=== PATIENT | female | born 1945 | race Caucasian/White ===

== ENCOUNTER 2020-10-08 13:54 | Emergency (ER) | payer MEDICARE, MEDICAID ==
[2020-10-08 15:08] LABS: ANION GAP 19.2 mmol/L (5-15); CHLORIDE,CL 104 mmol/L (98-107); SODIUM,NA 137 mmol/L (136-145)
--- NOTE | 2020-10-08 16:42 | EDM.PDOC ---
ED HPI GENERAL MEDICAL PROBLEM - General Chief Complaint: General Stated Complaint: UTI,HI Time Seen by Provider: 10/08/20 14:00 Source of Information: Reports: Patient ([id number]), Old Records, Other ([facility] advocate) History Limitations: Reports: Altered Mental Status - History of Present Illness INITIAL COMMENTS - FREE TEXT/NARRATIVE: 75-year-old female was picked up by ride line today as she was walking in town. Patient stated that she was heading towards the hospital to be seen and evaluated for possible urinary tract infection and he was kind enough to bring her in. She states that she just moved from [place] to [place] is living in the apartments. She has been here for 1 week. She states that she has no family. And that she has an advocate from the [facility] who helped her relocate here. She stated that she wanted to live in a smaller size down. She is somewhat disabled and unkempt and has a delusional thought process and paranoia thinking. She was supposed to set up a primary care provider but has not had a chance to do this yet. She has seen previous [facility] providers in [place]. I was able to get a hold of her advocate who stated that her paranoia and delusional thought processes are not unusual for her and she has not been a harm to herself or others. She currently denies any thoughts of self-harm or suicide. Her paranoia consist of feeling that the "[place] mafia is after her." Her previous visits that we are able to get records show complaints of similar episodes of urinary tract infections and paranoia and delusional thinking. She does not h ave any significant medications listed for psychiatric treatment. Onset: Unknown/Unsure Duration: Recurring Location: Reports: Generalized Quality: Reports: Burning Severity: Mild Improves with: Reports: None Worsens with: Reports: None Associated Symptoms: Reports: Other (parnoid, delusional) Treatments [employer]: Reports: Acetaminophen Other Treatments [employer] SERVICER: States she has been using a lot of tylenol at home. 0 Pain Score (Numeric/FACES): 0 - Related Data Allergies Allergy/AdvReac Type Severity Reaction Status Date / Time latex Allergy Hives Verified 10/08/20 16:16 Penicillins Allergy Hives Verified 10/08/20 16:16 Sulfa (Sulfonamide Allergy Hives Verified 03/12/21 16:16 Antibiotics) Home Meds: Home Meds Albuterol Sulfate [Albuterol Sulfate HFA] 2 inhalation PO 10/08/20 [History] Ciprofloxacin HCl [Cipro] 500 mg PO BID #10 tablet 10/08/20 [Rx] lisinopriL [Lisinopril] 5 mg PO DAILY PRN 10/08/20 [History] Past Medical History HEENT History: Reports: Cataract Other HEENT History: cataract times 2 Cardiovascular History: Reports: Heart Valve Replacement, High Cholesterol, Hypertension Other Cardiovascular History: Dr. Yusuf at [facility] Genitourinary History: Reports: UTI, Recurrent Musculoskeletal History: Reports: Other (See Below) Other Musculoskeletal History: bolt in right lower leg Psychiatric History: Reports: Antisocial Behaviors, Anxiety, Hallucinations, Psych Hospitalization(s) Other Psychiatric History: History of delusion disorder. ironworker apprentice states patient is no harm to self or others. Able to care for self. Hematologic History: Reports: Blood Transfusion(s) Oncologic (Cancer) History: Reports: Basal Cell Carcinoma Other Oncologic History: States nose skin cancer Dermatologic History: Reports: Other (See Below) Other Dermatologic History: Neurodermatitis - Infectious Disease History Infectious Disease History: Reports: None - Past Surgical History Head Surgeries/Procedures: Reports: None Cardiovascular Surgical History: Reports: Valve Replacement Oncologic Surgical History: Reports: Other (See Below) Other Oncologic Surgeries/Procedures: skin biopsy to nose Dermatological Surgical History: Reports: None Social & Family History - Family History Family Medical History: No Pertinent Family History HEENT: Reports: None Cardiac: Reports: None Respiratory: Reports: None GI: Reports: None : Reports: None OBGYN: Reports: None Musculoskeletal: Reports: None Neurological: Reports: None Psychiatric: Reports: None Endocrine/Metabolic: Reports: None Hematologic: Reports: None Immunologic: Reports: None Dermatologic: Reports: None Oncologic: Reports: None - Tobacco Use Tobacco Use Status *Q: Never Tobacco User Second Hand Smoke Exposure: No - Caffeine Use Caffeine Use: Reports: Coffee ED ROS GENERAL - Review of Systems Review Of Systems: See Below Constitutional: Reports: No Symptoms HEENT: Reports: No Symptoms Respiratory: Reports: No Symptoms Cardiovascular: Reports: No Symptoms Endocrine: Reports: No Symptoms GI/Abdominal: Reports: No Symptoms : Reports: Dysuria Musculoskeletal: Reports: No Symptoms Skin: Reports: No Symptoms Neurological: Reports: No Symptoms Psychiatric: Reports: Other (Delusional, paranoid). Denies: Hallucinations, Homicidal Ideation, Suicidal Ideation Immunologic: Reports: No Symptoms ED EXAM, GENERAL - Physical Exam Exam: See Below Exam Limited By: Altered Mental Status (Delusional content and tangential process) General Appearance: Alert, WD/WN, No Apparent Distress, Other (General appearance is disheveled.) Eye Exam: Bilateral Eye: EOMI Ears: Hearing Grossly Normal Nose: Normal Inspection Throat/Mouth: Normal Lips, Normal Oropharynx, Normal Voice, No Airway Compromise Head: Atraumatic Neck: Normal Inspection Respiratory/Chest: No Respiratory Distress, Lungs Clear Cardiovascular: Regular Rate, Rhythm, No Murmur GI/Abdominal: Soft, Non-Tender Back Exam: Normal Inspection Extremities: Normal Inspection Neurological: Alert, Oriented, No Motor/Sensory Deficits Psychiatric: Flat Affect, Other (Thought process is tangential, thought content is delusional; judgment and insight are both poor) Skin Exam: Warm, Dry, No Rash, Wound/Incision (Both excoriations overlying her extremities both upper and lower) Lymphatic: No Adenopathy Course - Vital Signs Last Recorded V/S: Last Vital Signs Temp 97 F 10/08/20 16:08 Pulse 60 10/08/20 16:08 Resp 16 10/08/20 16:08 BP 111/72 10/08/20 16:08 Pulse Ox 96 10/08/20 16:08 - Orders/Labs/Meds Orders: Active Orders 24 hr Category Date Time Status CULTURE URINE [RM] Stat Lab 10/08/20 14:20 Received Labs: Laboratory Tests 10/08/20 10/08/20 10/08/20 Range/Units 14:40 14:40 15:45 WBC 10.30 H (5.00-10.00) 10^3/uL RBC 3.13 L (3.80-5.50) 10^6/uL Hgb 10.0 L (12.0-16.0) g/dL Hct 31.2 L (37.0-47.0) % MCV 99.7 H (82.0-92.0) fL MCH 31.9 H (27.0-31.0) pg MCHC 32.1 (32.0-36.0) g/dL RDW 14.1 (11.5-14.5) % Plt Count 353 (150-400) 10^3/uL MPV 9.4 (7.4-10.4) fL Immature Gran % (Auto) 0.1 (0.0-5.0) % Neut % (Auto) 65.1 (50.0-70.0) % Lymph % (Auto) 24.5 (20.0-40.0) % [place] % (Auto) 7.4 (2.0-8.0) % Eos % (Auto) 2.4 (1.0-3.0) % Baso % (Auto) 0.5 (0.0-1.0) % Neut # (Auto) 6.71 (2.50-7.00) 10^3/uL Lymph # (Auto) 2.52 (1.00-4.00) 10^3/uL [place] # (Auto) 0.76 (0.10-0.80) 10^3/uL Eos # (Auto) 0.25 (0.10-0.30) 10^3/uL Baso # (Auto) 0.05 (0.00-0.10) 10^3/uL Immature Gran # (Auto) 0.01 (0.00-0.50) 10^3/uL Sodium 137 (136-145) mmol/L Potassium 5.1 (3.5-5.1) mmol/L Chloride 104 (98-107) mmol/L Carbon Dioxide 18.9 L (21.0-32.0) mmol/L Anion Gap 19.2 H (5-15) mmol/L BUN 40 H (7-18) mg/dL Creatinine 1.25 H (0.51-1.17) mg/dL Est Cr Clr Drug Dosing TNP Estimated GFR (MDRD) 42 mL/min Glucose 72 (70-140) mg/dL Calcium 8.9 (8.7-10.3) mg/dL Specimen Type Urinvoid Urine Color Yellow (YELLOW) Urine Appearance Turbid H (CLEAR) Urine pH 5.5 (5.0-9.0) Ur Specific [place] 1.015 (1.005-1.030) Urine Protein Trace H (NEGATIVE) mg/dL Urine Glucose (UA) Negative (NEGATIVE) mg/dL Urine Ketones Negative (NEGATIVE) mg/dL Urine Occult Blood Small H (NEGATIVE) Urine Nitrite Negative (NEGATIVE) Urine Bilirubin Negative (NEGATIVE) Urine Urobilinogen 0.2 (0.2-1.0) E.U./dL Ur Leukocyte Esterase Small H (NEGATIVE) Urine RBC 5-10 H (0-5) /HPF Urine WBC Packed (0-5) /HPF Ur Epithelial Cells Few /LPF Urine Bacteria Moderate H (NONE TO FEW) /HPF Departure - Departure Time of Disposition: 16:56 Disposition: Home, Self-Care 01 Condition: Fair Clinical Impression: UTI (urinary tract infection), uncomplicated, Delusional disorder, erotomanic type, with bizarre content, multiple episodes, 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 Cipro 500 mg twice daily for 5 days. 2. Patient needs to establish primary care in [place]. She was seen previously by [facility] in [place]. We will refer her to the [facility] in [facility] to develop primary care. 3. Jared Basilio, Social Service will be in contact with the patient as well as advocate from [facility]. Sepsis Event Note (ED) - Evaluation Sepsis Screening Result: No Definite Risk - Focused Exam Vital Signs: Vital Signs Temp Pulse Resp BP Pulse Ox 10/08/20 16:08 97 F 60 16 111/72 96 10/08/20 14:41 97.6 F 74 16 111/64 95 - My Orders Last 24 Hours: My Active Orders 10/08/20 14:20 CULTURE URINE [RM] Stat - Assessment/Plan Last 24 Hours: My Active Orders 10/08/20 14:20 CULTURE URINE [RM] Stat Assessment:: Urinary tract infection Delusional content with paranoia, recurrent multiple episodes, with no suicidal or self-harm thinking. Plan: 1. Patient will be started on Cipro 500 mg twice daily for 5 days for urinary tract infection. Cultures of urine were ordered.. 2. Patient has recently relocated to [place], she needs to establish primary care and has seen previous [facility] providers in [place]. We will make a referral and set up appointment with her here in [place]. 3. Patient has delusional and paranoid thought process without self-harm or suicidal thinking. We have been able to get a hold of her advocate from [place] at the [facility]. We also will contact social media sr strategy manager, Jared Basilio for follow-up for the patient's living situation and cares.
== END 2020-10-08 17:00 | disposition home or self-care (01) ==
LOC: KA.ED 13:54
DX: N39.0 Urinary tract infection, site not specified (principal); F22 Delusional disorders; I10 Essential (primary) hypertension; Z79.899 Other long term (current) drug therapy; Z91.040 Latex allergy status; Z88.0 Allergy status to penicillin; Z88.2 Allergy status to sulfonamides
CPT/HCPCS: 36415; 80048; 81001; 85025; 87077; 87086; 87088; 87186; 99284

== ENCOUNTER 2020-11-17 15:50 | Observation (INO) | payer MEDICARE, MEDICAID ==
[2020-11-17] MEDS ORDERED: ALBUTEROL INH PRN (16:35)
[2020-11-17] MEDS ORDERED: Acetaminophen 325 MG Tab PO PRN (16:35)
[2020-11-17] MEDS ORDERED: Sodium Chloride 0.9% 10 ML Syringe FLUSH PRN (17:00)
[2020-11-17] MEDS: Sodium Chloride 0.9% 1,000 ML IV SCH (17:23)
[2020-11-18] MEDS: BUDESONIDE INH SCH ×3 (03:00→09:00)
[2020-11-18] MEDS: FORMOTEROL INH SCH ×3 (03:00→09:00)
[2020-11-18] MEDS: Sodium Chloride 0.9% 1,000 ML IV SCH (03:50)
[2020-11-18] MEDS ORDERED: ALBUTEROL INH PRN (07:59)
--- NOTE | 2020-11-18 10:45 | PCM.DCSUM1 ---
Discharge Summary - Hospital Course Diagnosis: Stroke: No - Discharge Data Discharge Date: 11/18/20 Discharge Disposition: Home, Self-Care 01 Condition: Good - Referral to Home Health Primary Care Physician: Rosi Yusuf NP - Patient Summary/Data Consults: Consultations 11/17/20 19:25 Consult to Case Management/Bottle Washer Machine [CONS] Routine - Patient Instructions Activity: As Tolerated Showering/Bathing: May Shower Notify Provider of: Fever, Nausea and/or Vomiting - Discharge Plan *PRESCRIPTION DRUG MONITORING PROGRAM REVIEWED*: Not Applicable *COPY OF PRESCRIPTION DRUG MONITORING REPORT IN PATIENT JEANETH: Not Applicable Prescriptions/Med Rec: Ertapenem Sodium [Ertapenem] 1 gm IM DAILY 7 Days #7 vial amLODIPine [Norvasc] 2.5 mg PO DAILY #30 tablet Home Medications: Home Meds lisinopriL [Lisinopril] 10 mg PO DAILY 10/08/20 [History] Acetaminophen 650 mg PO Q6H PRN 11/17/20 [History] Albuterol [Proventil HFA] 2 puff INH Q4H PRN 11/17/20 [History] Budesonide/Formoterol [Symbicort 160-4.5 MCG] 2 puff INH BID 11/17/20 [History] hydroCHLOROthiazide [Hydrochlorothiazide] 12.5 mg PO DAILY 11/17/20 [History] Ertapenem Sodium [Ertapenem] 1 gm IM DAILY 7 Days #7 vial 11/18/20 [Rx] amLODIPine [Norvasc] 2.5 mg PO DAILY #30 tablet 11/18/20 [Rx] - Discharge Summary/Plan Comment DC Time >30 min.: Yes Discharge Summary/Plan Comment: Medication changes/adjustments upon Discharge --HOLD ACEI due to hyperkalemia and mild dehydration --Holding HCTZ since mildly dehydrated can resume upon follow-up --Added amlodipine 2.5 mg p.o. daily while holding GENOVEVA inhibitor, added due to need for better control --Ertapenem, 1 g IM daily x7 days, may be able to switch to p.o. upon culture sensitivities - Patient Data Vitals - Most Recent: Last Vital Signs Temp 97.5 F 11/18/20 06:23 Pulse 80 11/18/20 06:23 Resp 20 11/18/20 06:23 BP 152/62 H 11/18/20 06:23 Pulse Ox 95 11/18/20 06:23 Weight - Most Recent: 158 lb I&O - Last 24 hours: Intake & Output 11/17/20 11/18/20 11/18/20 22:59 06:59 14:59 Intake Total 650 1884 Balance 650 7274 Lab Results - Last 24 hrs: Laboratory Results - last 24 hr 11/17/20 11/18/20 11/18/20 Range/Units 16:00 07:40 07:40 WBC 5.96 (5.00-10.00) 10^3/uL RBC 2.72 L (3.80-5.50) 10^6/uL Hgb 8.8 L (12.0-16.0) g/dL Hct 28.1 L (37.0-47.0) % MCV 103.3 H D (82.0-92.0) fL MCH 32.4 H (27.0-31.0) pg MCHC 31.3 L (32.0-36.0) g/dL RDW 14.2 (11.5-14.5) % Plt Count 388 (150-400) 10^3/uL MPV 9.0 (7.4-10.4) fL Immature Gran % (Auto) 0.2 (0.0-5.0) % Neut % (Auto) 50.8 (50.0-70.0) % Lymph % (Auto) 30.7 (20.0-40.0) % [place] % (Auto) 12.6 H (2.0-8.0) % Eos % (Auto) 4.9 H (1.0-3.0) % Baso % (Auto) 0.8 (0.0-1.0) % Neut # (Auto) 3.03 (2.50-7.00) 10^3/uL Lymph # (Auto) 1.83 (1.00-4.00) 10^3/uL [place] # (Auto) 0.75 (0.10-0.80) 10^3/uL Eos # (Auto) 0.29 (0.10-0.30) 10^3/uL Baso # (Auto) 0.05 (0.00-0.10) 10^3/uL Immature Gran # (Auto) 0.01 (0.00-0.50) 10^3/uL Sodium 141 (136-145) mmol/L Potassium 4.7 (3.5-5.1) mmol/L Chloride 109 H (98-107) mmol/L Carbon Dioxide 18.7 L (21.0-32.0) mmol/L Anion Gap 18.0 H (5-15) mmol/L BUN 34 H (7-18) mg/dL Creatinine 1.15 (0.51-1.17) mg/dL Est Cr Clr Drug Dosing 35.50 mL/min Estimated GFR (MDRD) 46 mL/min Glucose 85 (70-140) mg/dL Calcium 8.4 L (8.7-10.3) mg/dL SARS CoV-2 RNA Rapid MICA Negative (NEGATIVE) Med Orders - Current: Current Medications Acetaminophen (Acetaminophen 325 Mg Tab) 650 mg PO Q6H PRN PRN Reason: Pain Albuterol (Albuterol 8 Gm InhalerPt Own) 2 gm INH Q4H PRN PRN Reason: Shortness of Breath Last Admin: 11/18/20 09:22 Dose: 2 puff Documented by: Sodium Chloride (Normal Saline) 1,000 mls @ 100 mls/hr IV ASDIRECTED [facility] Last Admin: 11/18/20 03:50 Dose: 100 mls/hr Documented by: Budesonide/Formoterol 160/4. 5mcgPt Own 2 puff INH BID [facility] Last Admin: 11/18/20 03:00 Dose: 2 puff Documented by: Sodium Chloride (Sodium Chloride 0.9% 10 Ml Syringe) 10 ml FLUSH Q8HR PRN PRN Reason: keep vein open Discontinued Medications Albuterol (Albuterol 8 Gm InhalerPt Own) 2 gm INH Q4H PRN PRN Reason: Shortness of Breath Last Admin: 11/18/20 03:00 Dose: 2 puff Documented by: Ertapenem 0.5 gm/ Sodium (Chloride) 50 mls @ 100 mls/hr IV ONETIME ONE Stop: 11/17/20 16:46 Last Admin: 11/17/20 17:22 Dose: 100 mls/hr Documented by:
== END 2020-11-18 13:30 | disposition home or self-care (01) ==
LOC: KA.MS 15:50
PROVIDERS: ADMIT Nurse Practitioner Family; ATTEND Family Medicine
DX: N30.01 Acute cystitis with hematuria (principal); E86.0 Dehydration; B96.20 Unspecified Escherichia coli [E. coli] as the cause of diseases classified elsewhere; E87.6 Hypokalemia; I12.9 Hypertensive chronic kidney disease with stage 1 through stage 4 chronic kidney disease, or unspecified chronic kidney disease; N18.4 Chronic kidney disease, stage 4 (severe); J44.9 Chronic obstructive pulmonary disease, unspecified; R60.9 Edema, unspecified; F41.9 Anxiety disorder, unspecified; L97.821 Non-pressure chronic ulcer of other part of left lower leg limited to breakdown of skin; Z20.822 Contact with and (suspected) exposure to COVID-19; Z79.899 Other long term (current) drug therapy; Z88.0 Allergy status to penicillin; Z91.040 Latex allergy status; Z85.3 Personal history of malignant neoplasm of breast
CPT/HCPCS: 36415; 80048; 85025; 96365; 96376; A9270-GY; G0378; J1335; J7030; U0002

== ENCOUNTER 2020-12-10 13:23 | Emergency (ER) | payer MEDICARE, MEDICAID ==
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
[2020-12-10] MEDS ORDERED: Hydrochlorothiazide 25 MG Tab PO ONE (14:50)
[2020-12-10] MEDS ORDERED: Mupirocin Oint 22 GM Tube TOP ONE (14:59)
== END 2020-12-10 15:25 | disposition home or self-care (01) ==
LOC: KA.ED 13:23
DX: F22 Delusional disorders (principal); R60.0 Localized edema; L28.0 Lichen simplex chronicus; Z88.0 Allergy status to penicillin; Z91.040 Latex allergy status; Z88.2 Allergy status to sulfonamides; Z79.899 Other long term (current) drug therapy
CPT/HCPCS: 99283; 99284; A9270

== ENCOUNTER 2020-12-21 12:09 | Emergency (ER) | payer MEDICARE, MEDICAID ==
--- NOTE | 2020-12-21 13:22 | EDM.PDOC ---
ED HPI GENERAL MEDICAL PROBLEM - General Chief Complaint: General Stated Complaint: UTI,SKIN ISSUES Time Seen by Provider: 12/21/20 13:07 Source of Information: Reports: Patient History Limitations: Reports: No Limitations - History of Present Illness INITIAL COMMENTS - FREE TEXT/NARRATIVE: 75 YO WF PRESENTS TO ER WITH COMPLAINTS OF DYSURIA WITH FREQUENCY AND URGENCY X 1 DAY. PT REPORTS SHE HAS HAD UTI'S IN THE PAST AND THIS IS SIMILAR. PT DENIES FEVER/CHILLS, NO BACK PAIN OR NAUSEA/VOMITING. PT ALSO COMPLAINING OF CHRONIC SKIN RASH TO LOWER EXTREMITIES THAT IMPROVES WITH STEROIDAL OINTMENT. PT WITH HISTORY OF NEURODERMATITIS AND STATES SHE RESPONSES WELL TO STEROIDAL TREATMENT. Onset: Today Duration: Chronic Location: Reports: Lower Extremity, Left, Lower Extremity, Right Quality: Reports: Other (ITCHING) Improves with: Reports: None Worsens with: Reports: None Associated Symptoms: Reports: No Other Symptoms, Malaise. Denies: Confusion, Fever/Chills, Nausea/Vomiting, Weakness - Related Data Allergies Allergy/AdvReac Type Severity Reaction Status Date / Time latex Allergy Hives Verified 12/21/20 12:23 Penicillins Allergy Hives Verified 12/21/20 12:23 Sulfa (Sulfonamide Allergy Hives Verified 12/21/20 12:23 Antibiotics) Home Meds: Home Meds lisinopriL [Lisinopril] 10 mg PO DAILY 10/08/20 [History] Acetaminophen 650 mg PO Q6H PRN 11/17/20 [History] Albuterol [Ventolin HFA] 2 gm INH Q4H PRN #1 inhaler 11/18/20 [Rx] Hydrocortisone [Hydrocortisone 2.5% Oint] 60 gm .XX TID #60 tube 12/21/20 [Rx] Phenazopyridine HCl [Pyridium] 200 mg PO TID PRN #6 tablet 12/21/20 [Rx] cephALEXin [Keflex] 500 mg PO Q8H #21 cap 12/21/20 [Rx] Past Medical History HEENT History: Reports: Cataract, Impaired Vision Other HEENT History: cataract times 2 Cardiovascular History: Reports: Heart Murmur, Heart Valve Replacement, Hypertension Other Cardiovascular History: Dr. Yusuf at [facility] Respiratory History: Reports: Asthma Gastrointestinal History: Reports: Other (See Below) Other Gastrointestinal History: umbilical hernia Genitourinary History: Reports: UTI, Recurrent Musculoskeletal History: Reports: Other (See Below) Other Musculoskeletal History: bolt in right lower leg Neurological History: Reports: None Psychiatric History: Reports: Antisocial Behaviors, Anxiety, Hallucinations, Psych Hospitalization(s) Other Psychiatric History: History of delusion disorder. fiber glass worker states patient is no harm to self or others. Able to care for self. Endocrine/Metabolic History: Reports: None Hematologic History: Reports: Blood Transfusion(s) Immunologic History: Reports: None Oncologic (Cancer) History: Reports: Basal Cell Carcinoma, Breast Other Oncologic History: States nose skin cancer Dermatologic History: Reports: Other (See Below) Other Dermatologic History: Neurodermatitis - Infectious Disease History Infectious Disease History: Reports: Chicken Pox, Extended Spectrum Beta- Lactamase (ESBL) - Past Surgical History Head Surgeries/Procedures: Reports: None Cardiovascular Surgical History: Reports: Valve Replacement GI Surgical History: Reports: Cholecystectomy, Hernia, Inguinal Endocrine Surgical History: Reports: None Neurological Surgical History: Reports: None Musculoskeletal Surgical History: Reports: None Oncologic Surgical History: Reports: Lumpectomy, Other (See Below) Other Oncologic Surgeries/Procedures: skin biopsy to nose Dermatological Surgical History: Reports: None Social & Family History - Family History Family Medical History: No Pertinent Family History HEENT: Reports: None Cardiac: Reports: None Respiratory: Reports: None GI: Reports: None : Reports: None OBGYN: Reports: None Musculoskeletal: Reports: None Neurological: Reports: None Psychiatric: Reports: None Endocrine/Metabolic: Reports: None Hematologic: Reports: None Immunologic: Reports: None Dermatologic: Reports: None Oncologic: Reports: None - Tobacco Use Tobacco Use Status *Q: Never Tobacco User - Caffeine Use Caffeine Use: Reports: Coffee, Soda, Tea - Recreational Drug Use Recreational Drug Use: No ED ROS GENERAL - Review of Systems Review Of Systems: See Below Constitutional: Reports: No Symptoms HEENT: Reports: No Symptoms Respiratory: Reports: No Symptoms Cardiovascular: Reports: No Symptoms Endocrine: Reports: No Symptoms GI/Abdominal: Reports: No Symptoms : Reports: Dysuria, Frequency, Urgency Musculoskeletal: Reports: No Symptoms Skin: Reports: Rash Neurological: Reports: No Symptoms Psychiatric: Reports: No Symptoms Hematologic/Lymphatic: Reports: No Symptoms Immunologic: Reports: No Symptoms ED EXAM, GENERAL - Physical Exam Exam: See Below Exam Limited By: No Limitations General Appearance: Alert, WD/WN, No Apparent Distress Respiratory/Chest: No Respiratory Distress, Lungs Clear, Normal Breath Sounds, No Accessory Muscle Use, Chest Non-Tender Cardiovascular: Normal Peripheral Pulses, Regular Rate, Rhythm, No Edema, No Gallop, No JVD, No Murmur, No Rub GI/Abdominal: Normal Bowel Sounds, Soft, Non-Tender, No Organomegaly, No Distention, No Abnormal Bruit, No Mass Back Exam: Normal Inspection, Full Range of Motion, NT Extremities: Normal Inspection, Normal Range of Motion, Non-Tender, Normal Capillary Refill, No Pedal Edema Neurological: Alert, Oriented, CN II-XII Intact, Normal Cognition, Normal Gait, Normal Reflexes, No Motor/Sensory Deficits Skin Exam: Warm, Dry, Rash (MACULARPAPULAR RASH TO LOWER EXTREMITIES). No: Increased Warmth Lymphatic: No Adenopathy Course - Vital Signs Last Recorded V/S: Last Vital Signs Temp 98.6 F 12/21/20 12:19 Pulse 94 12/21/20 12:19 Resp 18 12/21/20 12:19 BP 103/81 12/21/20 12:19 Pulse Ox 94 L 12/21/20 12:19 - Orders/Labs/Meds Orders: Active Orders 24 hr Category Date Time Status CULTURE URINE [RM] Stat Lab 12/21/20 12:31 Received Labs: Laboratory Tests 12/21/20 Range/Units 12:31 Specimen Type Urinvoid Urine Color Yellow (YELLOW) Urine Appearance Cloudy H (CLEAR) Urine pH 5.0 (5.0-9.0) Ur Specific [place] 1.025 (1.005-1.030) Urine Protein 100 H (NEGATIVE) mg/dL Urine Glucose (UA) Negative (NEGATIVE) mg/dL Urine Ketones Negative (NEGATIVE) mg/dL Urine Occult Blood Moderate H (NEGATIVE) Urine Nitrite Positive H (NEGATIVE) Urine Bilirubin Negative (NEGATIVE) Urine Urobilinogen 0.2 (0.2-1.0) E.U./dL Ur Leukocyte Esterase Small H (NEGATIVE) Urine RBC 10-20 H (0-5) /HPF Urine WBC 75-100 H (0-5) /HPF Ur Epithelial Cells Occasional /LPF Urine Bacteria Occasional (NONE TO FEW) /HPF Meds: Medications Discontinued Medications Generic Name Dose Route Start Last Admin Trade Name Freq PRN Reason Stop Dose Admin Ceftriaxone Sodium 1 gm 12/21/20 13:22 Ceftriaxone 1 Gm Vial IM 12/21/20 13:23 ONETIME ONE Departure - Departure Time of Disposition: 13:43 Disposition: Home, Self-Care 01 Condition: Good Clinical Impression: UTI, Urinary tract infectious disease, Dermatitis - Discharge Information Prescriptions: Hydrocortisone [Hydrocortisone 2.5% Oint] 60 gm .XX TID #60 tube cephALEXin [Keflex] 500 mg PO Q8H #21 cap Phenazopyridine HCl [Pyridium] 200 mg PO TID PRN #6 tablet PRN Reason: Pain Instructions: Urinary Tract Infection, Adult, [id number], Contact Dermatitis Referrals: Ingrid Troncoso MD [Primary Care Provider] - Forms: ED Department Discharge Additional Instructions: 1. DISCHARGE HOME 2. KEFLEX 500MG 3X/DAY X 7 DAYS FOR UTI 3. PYRIDIUM 200MG TID X 3 DAYS NEEDED FOR PAIN 4. HYDROCORTISONE 2.5% 60G APPLY TO AFFECTED AREAS 3X/DAY X MINIMUM OF 2 WEEKS 5. FOLLOW UP IN CLINIC IN AM SCHEDULED 6. RETURN TO ER FOR WORSENING SYMPTOMS Sepsis Event Note (ED) - Evaluation Sepsis Screening Result: No Definite Risk - Focused Exam Vital Signs: Vital Signs Temp Pulse Resp BP Pulse Ox 12/21/20 12:19 98.6 F 94 18 103/81 94 L - My Orders Last 24 Hours: My Active Orders 12/21/20 12:31 CULTURE URINE [RM] Stat - Assessment/Plan Last 24 Hours: My Active Orders 12/21/20 12:31 CULTURE URINE [RM] Stat Assessment:: 1. URINARY TRACT INFECTION 2. DERMATITIS Plan: 1. DISCHARGE HOME 2. KEFLEX 500MG 3X/DAY X 7 DAYS FOR UTI 3. PYRIDIUM 200MG TID X 3 DAYS NEEDED FOR PAIN 4. HYDROCORTISONE 2.5% 60G APPLY TO AFFECTED AREAS 3X/DAY X MINIMUM OF 2 WEEKS 5. FOLLOW UP IN CLINIC IN AM SCHEDULED 6. RETURN TO ER FOR WORSENING SYMPTOMS
[2020-12-21] MEDS: cefTRIAXone 1 GM Vial IM ONE (13:38)
== END 2020-12-21 14:00 | disposition home or self-care (01) ==
LOC: KA.ED 12:09
DX: N39.0 Urinary tract infection, site not specified (principal); L30.9 Dermatitis, unspecified; I10 Essential (primary) hypertension; J45.909 Unspecified asthma, uncomplicated; Z79.899 Other long term (current) drug therapy; Z91.040 Latex allergy status; Z88.0 Allergy status to penicillin; Z88.2 Allergy status to sulfonamides
CPT/HCPCS: 81001; 87086; 87088; 87186; 96372; 99283; 99284; J0696

== ENCOUNTER 2020-12-31 16:29 | Emergency (ER) | payer MEDICARE, MEDICAID ==
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
== END 2020-12-31 17:30 | disposition home or self-care (01) ==
LOC: KA.ED 16:29
DX: F22 Delusional disorders (principal); I10 Essential (primary) hypertension; J45.909 Unspecified asthma, uncomplicated; Z88.0 Allergy status to penicillin; Z91.040 Latex allergy status; Z79.899 Other long term (current) drug therapy
CPT/HCPCS: 99283; 99284